=== PATIENT | female | born 1950 | race Caucasian/White ===

== ENCOUNTER 2018-03-09 10:35 | Emergency (ER) | payer MEDICARE, OTHER, SELFPAY ==
[2018-03-09 10:47] VITALS: BP 141/64; PULSE 68; RESP 16; TEMP 36.7; O2SAT 100; BMI 25.7
--- NOTE | 2018-03-09 10:47 | DI.RAD.S_ITS ---
PROCEDURE: XR ANKLE RT MIN 3V INDICATIONS: injury pain TECHNIQUE: 3 views of the ankle were acquired. COMPARISON: None. FINDINGS: Bones: Corticated calcifications are present adjacent to the fifth metatarsal base. Ankle mortise is normally aligned. No suspicious bony lesions. Fixation screws are noted projecting over the first and second digits. Soft tissues: Lateral malleolar soft tissue edema is present. Achilles tendon appears normal. IMPRESSION: Lateral malleolar soft tissue edema. Corticated ossifications are adjacent to the fifth metatarsal base suggestive of old injury. However, recommend correlation for point tenderness given history of recent trauma. Dictated by: Rachel Brannon M.D. on 03/09/2018 at 11:39 Approved by: Rachel Brannon M.D. on 03/09/2018 at 11:41
[2018-03-09 11:03] VITALS: PULSE 72
--- NOTE | 2018-03-09 12:18 | ED_ITS ---
HPI - Extremity Injury (Lower) General Chief Complaint: Extremity Injury, Lower Stated Complaint: FELL AND TWISTED RIGHT ANKLE History of Present Illness HPI Narrative: HPI 68-year-old female presents for evaluation of ecchymosis, pain, swelling inferior to her right lateral malleolus after twisting inverting her ankle 3 days prior to arrival, remains amatory, notes ongoing discomfort. Patient denies further injuries to her fall. ROS with no recent constitutional symptoms. Exam Gen: Pleasant, nontoxic-appearing, resting comfortably. HEENT: NC, AT, PEERL, EOMI. Resp: Unlabored respirations with a normal work of breathing. Card: Extremities warm and well perfused. GI: Non-distended. : Deferred MSK: Right calf without visible or palpable trauma, muscle compartments soft and non-tender to palpation. Saez test with plantar flexion. No tenderness to palpation over the tibia or fibula. Ankle with ecchymosis and swelling diffusely inferior to the lateral malleolus. No tenderness over the posterior lateral malleolus, no tenderness over the posterior medial malleolus. Able to partially dorsiflex, plantarflex, arun, and invert the ankle with a globally reduced range of motion secondary to discomfort. Other than ecchymosis extending from the lateral malleolus the foot is visually normal without tenderness to palpation, specifically including the navicular bone and the base of the 5th metatarsal. Able flex and extend all toes. Muscle compartments of the foot are soft. Neurovascular 2+ DP and PT pulses. Sensation grossly intact to touch on the calf. Sensation intact to touch on all toes, first web space, the medial, lateral, plantar and dorsal surfaces of the foot. Neuro: AO x 3, no facial asymmetry, vision and hearing WNL. Heme/Lymph: Deferred Skin: Normal color with no visible lesions (other than noted above). Psych: Mood and affect appropriate. XR R foot: lateral malleolus soft tissue edema. Corticated ossifications are adjacent to the 5th metatarsal base suggestive of an old injury. However, recommend correlation for point tenderness given the recent trauma. MDM Previous chart, nursing note, and vitals reviewed. A/P: 68-year-old female presents for evaluation of ecchymosis, pain, swelling inferior to her right lateral malleolus after twisting inverting her ankle 3 days prior to arrival, remains amatory, notes ongoing discomfort. CMS intact. Ankle films without clear evidence of fracture, given the absence of tenderness over the base of the 5th metatarsal strongly doubt acute fracture. Crutches were offered, patient declined. Recommended NSAIDs, patient to follow up with PCP. Impression: right talofibular strain. (please reference below for remainder of encounter information) Related Data Allergies Allergy/AdvReac Type Severity Reaction Status Date / Time No Known Drug Allergies Allergy Verified 03/09/18 10:47 Exam Initial Vital Signs Initial Vital Signs: Vital Signs Temperature 98.0 F 03/09/18 10:47 Pulse Rate 68 03/09/18 10:47 Respiratory Rate 16 03/09/18 10:47 Blood Pressure 141/64 H 03/09/18 10:47 Pulse Oximetry 100 03/09/18 10:47 Course Orders Ordered: ED Orders 03/09/18 10:47 XR ankle RT min 3V Stat Vital Signs - 8 hr 03/09/18 10:47 03/09/18 11:03 Temperature 98.0 F Pulse Rate 68 Pulse Rate [Right Dorsalis Pedis] 72 Respiratory Rate 16 Blood Pressure 141/64 H Pulse Oximetry 100
[2018-03-09 12:52] VITALS: BP 132/62; PULSE 70; RESP 14; O2SAT 99
== END 2018-03-09 12:54 | disposition home or self-care (01) ==
PROVIDERS: Emergency Provider Emergency Medicine
DX: S93.491A Sprain of other ligament of right ankle, initial encounter (principal); W18.40XA Slipping, tripping and stumbling without falling, unspecified, initial encounter
CPT/HCPCS: 73610; 99282; 99283